=== PATIENT | female | born 1950 | race Caucasian/White ===

== ENCOUNTER 2020-07-10 16:46 | Inpatient (IN) ==
[2020-07-10] MEDS ORDERED: fentaNYL citrate 100 MCG/2 ML VIAL ONE ×2 (17:03→17:14)
[2020-07-10] MEDS ORDERED: fentaNYL citrate 100 MCG/2 ML VIAL IV STA (17:03)
[2020-07-10] MEDS ORDERED: ASPIRIN CHEW 324 MG PO STA (17:03)
[2020-07-10] MEDS ORDERED: SODIUM CHLORIDE 0.9% 1000ML 1,000 ML IV ONE (17:04)
[2020-07-10] MEDS ORDERED: ASPIRIN CHEW 324 MG ONE (17:04)
[2020-07-10] MEDS ORDERED: diphenhydrAMINE 50 MG/ML VIAL IV STA (17:10)
[2020-07-10] MEDS ORDERED: methylPREDNISolone 125 MG/2 ML VIAL IV STA (17:10)
--- NOTE | 2020-07-10 17:10 | Emergency Department Note ---
History of Present Illness General Chief Complaint: Chest Pain Stated Complaint: CHEST PAINS, SWEATING Time Seen by Provider: 07/10/20 17:01 History of Present Illness Provider Complaint: chest pain Onset (ago): hour(s) 1 Duration: constant Onset: during exertion Pain Location: substernal Pain Radiation: LUE Severity: moderate Maximum Pain Intensity: 8 Current Pain Intensity: 8 Quality: + heaviness Relieved By: + nothing Exacerbated By: + nothing Context: no recent illness, no recent surgery, no recent immobilization, no recent travel, no trauma/injury, no new medications and no history of DVT/PE Associated symptoms: + diaphoresis and + dyspnea; no nausea, no vomiting, no sense of impending doom, no syncope, no palpitations, no cough and no leg swelling Treatments prior to arrival: none Home Medications Medication Instructions Recorded Confirmed Type aspirin [Aspirin Low Dose] 81 mg PO DAILY 11/19/19 07/10/20 History atorvastatin 40 mg PO DAILY 11/19/19 07/10/20 History venlafaxine 150 mg PO DAILY 11/19/19 07/10/20 History metformin 850 mg PO BID 07/10/20 07/10/20 History Allergies Allergy/AdvReac Type Severity Reaction Status Date / Time Sulfa (Sulfonamide Allergy Intermediate RASH Verified 07/10/20 17:05 Antibiotics) Past Med/Surg History Medical History (Updated 07/10/20 @ 22:20 by Johnnie De La Cruz) Diabetes mellitus Hyperlipidemia No pertinent family history Surgical History No pertinent past surgical history Family History (Updated 07/10/20 @ 19:53 by Flaquita Candelaria DO) Grandmother Stroke Social History Smoking Status: Never smoker Hx Alcohol Use: Yes Alcohol type: wine Hx Substance Use: No Preferred Language: Yakut Communication Ability: Effective Aluminum Polisher Required: No Beliefs That Will Affect Care: None Current Living Situation: Alone Other Information That Helps Us Care for You: No Feels Safe at Home: Yes Safety Concerns: Feels Safe At This Time Assistive Devices: Glasses, Hearing Aid - Bilateral and Hearing Aid - Left Review of Systems A total of 10 systems reviewed and were otherwise negative Physical Exam Vital Signs Vital Signs - 24 hr 07/10/20 16:53 07/10/20 17:14 07/10/20 17:23 Temperature 36.4 C L Temperature Source Oral Pulse Rate 87 78 Pulse Rate [Apical] 78 Respiratory Rate 25 H 18 20 Respiratory Effort / Characteristics Non-Labored Respiratory Depth Shallow Normal Respiratory Pattern Tachypnea Blood Pressure [Right Arm] 165/94 H Blood Pressure Mean [Right Arm] 117 Pulse Oximetry 97 97 94 Oxygen Delivery Method Room Air Room Air Room Air Sepsis Recent Fever Within 48 Hours No Sepsis New/Unexplained Change in Mental Status No Sepsis Action Taken by Nursing No Action Required Course Course 1701: The patient was evaluated in room C8. A complete history and physical exam was performed. Cardiac monitoring: An order was placed for continuous cardiac monitoring. The monitor shows a rate of 80 with sinus rhythm heart alert paged Administered Medications Acetaminophen (Acetaminophen 325 Mg Tab) 650 mg PO Q4H PRN PRN Reason: MILD Pain (Scale 1,2,3) Stop: 08/09/20 18:33 Last Admin: 07/10/20 20:07 Dose: 650 mg Documented by: [id number] Sodium Chloride (Nss 1000ml) 1,000 mls @ 100 mls/hr IV .Q10H [facility] Stop: 07/11/20 02:14 Last Infusion: 07/10/20 21:45 Dose: 0 mls/hr Documented by: [id number] Admin: 07/10/20 19:00 Dose: 100 mls/hr Documented by: [id number] Insulin Aspart (Insulin Aspart 100 Units/Ml 3 Ml Pen) 0 units SC ACHS ASHLEY Stop: 08/09/20 20:59 Last Admin: 07/10/20 20:44 Dose: 1 units Documented by: [id number] Cosigned by: [id number] Metoprolol Tartrate (Metoprolol Tartrate 25 Mg Tab) 25 mg PO BID [facility] Stop: 08/09/20 20:59 Last Admin: 07/10/20 20:43 Dose: 25 mg Documented by: [id number] Discontinued Medications Aspirin (Aspirin Chew 324 Mg) 324 mg PO NOW [facility] Stop: 07/10/20 17:04 Last Admin: 07/10/20 17:05 Dose: 324 mg Documented by: [id number] Aspirin (Aspirin Chew 324 Mg) Confirm Administered Dose 324 mg .ROUTE .STK-MED ONE Stop: 07/10/20 17:05 Last Admin: 07/10/20 19:20 Dose: Not Given Documented by: [id number] Atropine Sulfate (Atropine Sulfate 0.1 Mg/Ml 10ml Syr) Confirm Administered Dose 1 mg IV .[facility] ONE Stop: 07/10/20 17:31 Last Admin: 07/10/20 18:18 Dose: Not Given Documented by: [id number] Diphenhydramine HCl (Diphenhydramine 50 Mg/Ml Vial) 25 mg IV NOW STA Stop: 07/10/20 17:11 Last Admin: 07/10/20 17:15 Dose: 25 mg Documented by: [id number] Diphenhydramine HCl (Diphenhydramine 50 Mg/Ml Vial) Confirm Administered Dose 50 mg .ROUTE .STMedClimate-MED ONE Stop: 07/10/20 17:12 Last Admin: 07/10/20 19:20 Dose: Not Given Documented by: [id number] Fentanyl Citrate (Fentanyl Citrate 100 Mcg/2 Ml Vial) 50 mcg IV NOW STA Stop: 07/10/20 17:04 Last Admin: 07/10/20 17:05 Dose: 50 mcg Documented by: [id number] Fentanyl Citrate (Fentanyl Citrate 100 Mcg/2 Ml Vial) Confirm Administered Dose 100 mcg .ROUTE .STMedClimate-MED ONE Stop: 07/10/20 17:15 Last Admin: 07/10/20 19:19 Dose: Not Given Documented by: [id number] Fentanyl Citrate (Fentanyl Citrate 100 Mcg/2 Ml Vial) Confirm Administered Dose 100 mcg .ROUTE .STMedClimate-MED ONE Stop: 07/10/20 17:04 Last Admin: 07/10/20 18:17 Dose: 100 mcg Documented by: [id number] Heparin Sodium (Porcine) (Heparin (Porcine) 1000 Unit/Ml 10 Ml (Ship Purser Use Only)) Confirm Administered Dose 10,000 units .ROUTE .STMedClimate-MED ONE Stop: 07/10/20 17:14 Last Admin: 07/10/20 18:19 Dose: 6,000 units Documented by: [id number] Heparin Sodium (Porcine) (Heparin (Porcine) 1000 Unit/Ml 10 Ml (Ship Purser Use Only)) Confirm Administered Dose 10,000 units .ROUTE .STMedClimate-MED ONE Stop: 07/10/20 18:01 Last Admin: 07/10/20 18:18 Dose: 10,000 units Documented by: [id number] Heparin Sodium/Sodium Chloride (Heparin In Nss Infusion 1000 Unit/500 Ml (2 U/Ml) Bag) Confirm Administered Dose 3,000 units IV .STK-MED ONE Stop: 07/10/20 17:15 Last Admin: 07/10/20 18:17 Dose: 3,000 units Documented by: [id number] Sodium Chloride (Nss 1000ml) 1,000 mls @ 999 mls/hr IV .Q1H1M ONE Stop: 07/10/20 18:04 Last Infusion: 07/10/20 18:38 Dose: 0 mls/hr Documented by: [id number] Admin: 07/10/20 17:17 Dose: 999 mls/hr Documented by: [id number] Methylprednisolone (Methylprednisolone 125 Mg/2 Ml Vial) 125 mg IV NOW STA Stop: 07/10/20 17:11 Last Admin: 07/10/20 17:15 Dose: 125 mg Documented by: [id number] Methylprednisolone (Methylprednisolone 125 Mg/2 Ml Vial) Confirm Administered Dose 125 mg .ROUTE .STK-MED ONE Stop: 07/10/20 17:12 Last Admin: 07/10/20 19:19 Dose: Not Given Documented by: [id number] Midazolam HCl (Midazolam Hcl 1 Mg/Ml 2ml Vial) Confirm Administered Dose 2 mg .ROUTE .STK-MED ONE Stop: 07/10/20 17:14 Last Admin: 07/10/20 18:17 Dose: 2 mg Documented by: [id number] Midazolam HCl (Midazolam Hcl 1 Mg/Ml 2ml Vial) Confirm Administered Dose 2 mg .ROUTE .STK-MED ONE Stop: 07/10/20 18:06 Last Increment: 07/10/20 18:18 Dose: 1 mg Documented by: [id number] Nicardipine HCl (Nicardipine Hcl Inj 2.5 Mg/Ml 10 Ml Amp) Confirm Administered Dose 25 mg .ROUTE .STK-MED ONE Stop: 07/10/20 17:14 Last Admin: 07/10/20 18:18 Dose: 25 mg Documented by: [id number] Nitroglycerin/Dextrose (Nitroglycerin/D5w 100mcg/Ml 20ml Syr) Confirm Administered Dose 2,000 mcg .ROUTE .STK-MED ONE Stop: 07/10/20 17:15 Last Admin: 07/10/20 18:18 Dose: 2,000 mcg Documented by: [id number] Ondansetron HCl (Ondansetron Inj 2 Mg/Ml 2 Ml Vial) Confirm Administered Dose 4 mg .ROUTE .STK-MED ONE Stop: 07/10/20 17:31 Last Admin: 07/10/20 18:18 Dose: 4 mg Documented by: [id number] Potassium Chloride (Potassium Chloride Crtab 20 Meq Tabcr) 20 meq PO NOW STA Stop: 07/10/20 20:07 Last Admin: 07/10/20 20:47 Dose: 20 meq Documented by: [id number] Ticagrelor (Ticagrelor 90 Mg Tab) Confirm Administered Dose 180 mg PO .STK-MED ONE Stop: 07/10/20 18:24 Last Admin: 07/10/20 18:30 Dose: 180 mg Documented by: [id number] Medical Decision Making Laboratory Data Result diagrams: 07/10/20 17:13 07/10/20 17:13 Labs: Lab Results 07/10/20 07/10/20 07/10/20 Range/Units 17:03 17:13 17:13 WBC 14.56 H (4.8-10.8) K/uL RBC 4.60 (4.2-5.4) M/uL Hgb 14.3 (12.0-16.0) g/dL POC Hgb (12.0-16.0) g/dl Hct 41.8 (37-47) % POC Hct (37-47) % MCV 90.9 (80-100) fL MCH 31.1 (25-34) pg MCHC 34.2 (32-36) g/dL RDW Std Deviation 44.0 (36.4-46.3) fL RDW Coeff of Mehran 13.4 (11.5-14.5) % Plt Count 491 H (130-400) K/uL MPV 9.5 (7.4-10.4) fL Immature Gran % (Auto) 0.7 % Neut % (Auto) 67.2 % Lymph % (Auto) 22.3 % [place] % (Auto) 7.9 % Eos % (Auto) 1.4 % Baso % (Auto) 0.5 % Neut # (Auto) 9.77 H (1.4-6.5) K/uL Lymph # (Auto) 3.25 (1.2-3.4) K/uL [place] # (Auto) 1.15 H (0.11-0.59) K/uL Eos # (Auto) 0.21 (0-0.5) K/uL Baso # (Auto) 0.08 (0-0.2) K/uL Immature Gran # (Auto) 0.10 H (0.00-0.02) K/uL PT 9.8 (9.0-12.0) Seconds INR 1.0 (0.9-1.1) APTT 21.0 (21.0-31.0) Seconds PTT Ratio 0.8 Activ Coag Time Kaolin (94-140) SECONDS POC Sodium (135-144) mmol/L Sodium 141 (136-145) mmol/L POC Potassium (3.3-5.0) mmol/L Potassium 3.6 (3.5-5.1) mmol/L POC Chloride (101-112) mmol/L Chloride 108 H (98-107) mmol/L Carbon Dioxide 23 (21-32) mmol/L POC Total CO2 (24-31) mmol/L Anion Gap 10.0 (3-11) POC Anion Gap (16-25) mmol/L POC BUN (7-18) mg/dl BUN 20 H (7-18) mg/dl Creatinine 1.24 H (0.6-1.2) mg/dl POC Creatinine (0.6-1.3) mg/dl Est Cr Clr Drug Dosing 44.4 ml/min Est GFR ( Amer) 50.6 Est GFR (Non-Af Amer) 43.7 BUN/Creatinine Ratio 16.5 (10-20) Glucose 138 H (70-99) mg/dl POC Glucose (other) (70-99) mg/dl Calcium 10.4 H (8.5-10.1) mg/dl POC Ioniz Calcium Willie (1.12-1.32) mmol/l Magnesium 2.4 (1.8-2.4) mg/dl Total Bilirubin 0.5 (0.2-1) mg/dl AST 14 L (15-37) U/L ALT 32 (12-78) U/L Alkaline Phosphatase 117 (45-117) U/L Total Creatine Kinase 105 (26-192) U/L CK-MB (CK-2) 1.3 (0.5-3.6) ng/ml CK/CKMB % Calc 1.2 (0-3.0) Troponin I < 0.015 (0-0.045) ng/ml Total Protein 8.5 H (6.4-8.2) gm/dl Albumin 4.4 (3.4-5.0) gm/dl Globulin 4.1 H (2.5-4.0) gm/dl Albumin/Globulin Ratio 1.1 (0.9-2) Lipase 97 (73-393) U/L TSH 5.220 H (0.300-4.500) uIu/ml Free T4 0.86 (0.8-1.6) ng/dl Urine Color Urine Appearance Urine pH Ur Specific [place] Urine Protein Urine Glucose (UA) Urine Ketones Urine Blood Urine Nitrite Urine Bilirubin Urine Urobilinogen Ur Leukocyte Esterase Urine WBC (Auto) Urine RBC (Auto) U Hyaline Cast (Auto) U Epithel Cells (Auto) Urine Bacteria (Auto) Ur Renal Epithelial Cell Urine Crystals Calcium Oxalate Crystal Uric Acid Crystals Triple Phos Crystals Other Crystals Amorphous Sediment Granular Casts Waxy Casts RBC Casts WBC Casts Other Casts Urine Mucus Urine Other Urine Trichomonas Urine Yeast Urine Sperm Ur Oval Fat Bodies COVID-19 Eval Order SARS-CoV-2 (PCR) (Negative) Influenza Type A (PCR) (Neg) Influenza Type B (PCR) (Neg) RSV (RT-PCR) (Neg) 07/10/20 07/10/20 07/10/20 Range/Units 17:13 17:13 17:18 WBC (4.8-10.8) K/uL RBC (4.2-5.4) M/uL Hgb (12.0-16.0) g/dL POC Hgb 15.3 (12.0-16.0) g/dl Hct (37-47) % POC Hct 45 (37-47) % MCV (80-100) fL MCH (25-34) pg MCHC (32-36) g/dL RDW Std Deviation (36.4-46.3) fL RDW Coeff of Mehran (11.5-14.5) % Plt Count (130-400) K/uL MPV (7.4-10.4) fL Immature Gran % (Auto) % Neut % (Auto) % Lymph % (Auto) % [place] % (Auto) % Eos % (Auto) % Baso % (Auto) % Neut # (Auto) (1.4-6.5) K/uL Lymph # (Auto) (1.2-3.4) K/uL [place] # (Auto) (0.11-0.59) K/uL Eos # (Auto) (0-0.5) K/uL Baso # (Auto) (0-0.2) K/uL Immature Gran # (Auto) (0.00-0.02) K/uL PT (9.0-12.0) Seconds INR (0.9-1.1) APTT (21.0-31.0) Seconds PTT Ratio Activ Coag Time Kaolin (94-140) SECONDS POC Sodium 143 (135-144) mmol/L Sodium (136-145) mmol/L POC Potassium 3.7 (3.3-5.0) mmol/L Potassium (3.5-5.1) mmol/L POC Chloride 106 (101-112) mmol/L Chloride (98-107) mmol/L Carbon Dioxide (21-32) mmol/L POC Total CO2 25 (24-31) mmol/L Anion Gap (3-11) POC Anion Gap 17.0 (16-25) mmol/L POC BUN 21 H (7-18) mg/dl BUN (7-18) mg/dl Creatinine (0.6-1.2) mg/dl POC Creatinine 1.2 (0.6-1.3) mg/dl Est Cr Clr Drug Dosing ml/min Est GFR ( Amer) Est GFR (Non-Af Amer) BUN/Creatinine Ratio (10-20) Glucose (70-99) mg/dl POC Glucose (other) 140 H (70-99) mg/dl Calcium (8.5-10.1) mg/dl POC Ioniz Calcium Willie 1.27 (1.12-1.32) mmol/l Magnesium (1.8-2.4) mg/dl Total Bilirubin (0.2-1) mg/dl AST (15-37) U/L ALT (12-78) U/L Alkaline Phosphatase (45-117) U/L Total Creatine Kinase (26-192) U/L CK-MB (CK-2) (0.5-3.6) ng/ml CK/CKMB % Calc (0-3.0) Troponin I (0-0.045) ng/ml Total Protein (6.4-8.2) gm/dl Albumin (3.4-5.0) gm/dl Globulin (2.5-4.0) gm/dl Albumin/Globulin Ratio (0.9-2) Lipase (73-393) U/L TSH (0.300-4.500) uIu/ml Free T4 (0.8-1.6) ng/dl Urine Color Urine Appearance Urine pH Ur Specific [place] Urine Protein Urine Glucose (UA) Urine Ketones Urine Blood Urine Nitrite Urine Bilirubin Urine Urobilinogen Ur Leukocyte Esterase Urine WBC (Auto) Urine RBC (Auto) U Hyaline Cast (Auto) U Epithel Cells (Auto) Urine Bacteria (Auto) Ur Renal Epithelial Cell Urine Crystals Calcium Oxalate Crystal Uric Acid Crystals Triple Phos Crystals Other Crystals Amorphous Sediment Granular Casts Waxy Casts RBC Casts WBC Casts Other Casts Urine Mucus Urine Other Urine Trichomonas Urine Yeast Urine Sperm Ur Oval Fat Bodies COVID-19 Eval Order [facility] at [facility] SARS-CoV-2 (PCR) NEGATIVE (Negative) Influenza Type A (PCR) Negative (Neg) Influenza Type B (PCR) Negative (Neg) RSV (RT-PCR) Negative (Neg) 07/10/20 07/10/20 07/10/20 Range/Units 17:56 18:18 18:34 WBC (4.8-10.8) K/uL RBC (4.2-5.4) M/uL Hgb (12.0-16.0) g/dL POC Hgb (12.0-16.0) g/dl Hct (37-47) % POC Hct (37-47) % MCV (80-100) fL MCH (25-34) pg MCHC (32-36) g/dL RDW Std Deviation (36.4-46.3) fL RDW Coeff of Mehran (11.5-14.5) % Plt Count (130-400) K/uL MPV (7.4-10.4) fL Immature Gran % (Auto) % Neut % (Auto) % Lymph % (Auto) % [place] % (Auto) % Eos % (Auto) % Baso % (Auto) % Neut # (Auto) (1.4-6.5) K/uL Lymph # (Auto) (1.2-3.4) K/uL [place] # (Auto) (0.11-0.59) K/uL Eos # (Auto) (0-0.5) K/uL Baso # (Auto) (0-0.2) K/uL Immature Gran # (Auto) (0.00-0.02) K/uL PT (9.0-12.0) Seconds INR (0.9-1.1) APTT (21.0-31.0) Seconds PTT Ratio Activ Coag Time Kaolin 241 H 296 H (94-140) SECONDS POC Sodium (135-144) mmol/L Sodium (136-145) mmol/L POC Potassium (3.3-5.0) mmol/L Potassium (3.5-5.1) mmol/L POC Chloride (101-112) mmol/L Chloride (98-107) mmol/L Carbon Dioxide (21-32) mmol/L POC Total CO2 (24-31) mmol/L Anion Gap (3-11) POC Anion Gap (16-25) mmol/L POC BUN (7-18) mg/dl BUN (7-18) mg/dl Creatinine (0.6-1.2) mg/dl POC Creatinine (0.6-1.3) mg/dl Est Cr Clr Drug Dosing ml/min Est GFR ( Amer) Est GFR (Non-Af Amer) BUN/Creatinine Ratio (10-20) Glucose (70-99) mg/dl POC Glucose (other) (70-99) mg/dl Calcium (8.5-10.1) mg/dl POC Ioniz Calcium Willie (1.12-1.32) mmol/l Magnesium (1.8-2.4) mg/dl Total Bilirubin (0.2-1) mg/dl AST (15-37) U/L ALT (12-78) U/L Alkaline Phosphatase (45-117) U/L Total Creatine Kinase (26-192) U/L CK-MB (CK-2) (0.5-3.6) ng/ml CK/CKMB % Calc (0-3.0) Troponin I (0-0.045) ng/ml Total Protein (6.4-8.2) gm/dl Albumin (3.4-5.0) gm/dl Globulin (2.5-4.0) gm/dl Albumin/Globulin Ratio (0.9-2) Lipase (73-393) U/L TSH (0.300-4.500) uIu/ml Free T4 (0.8-1.6) ng/dl Urine Color Cancelled Urine Appearance Cancelled Urine pH Cancelled Ur Specific [place] Cancelled Urine Protein Cancelled Urine Glucose (UA) Cancelled Urine Ketones Cancelled Urine Blood Cancelled Urine Nitrite Cancelled Urine Bilirubin Cancelled Urine Urobilinogen Cancelled Ur Leukocyte Esterase Cancelled Urine WBC (Auto) Cancelled Urine RBC (Auto) Cancelled U Hyaline Cast (Auto) Cancelled U Epithel Cells (Auto) Cancelled Urine Bacteria (Auto) Cancelled Ur Renal Epithelial Cell Cancelled Urine Crystals Cancelled Calcium Oxalate Crystal Cancelled Uric Acid Crystals Cancelled Triple Phos Crystals Cancelled Other Crystals Cancelled Amorphous Sediment Cancelled Granular Casts Cancelled Waxy Casts Cancelled RBC Casts Cancelled WBC Casts Cancelled Other Casts Cancelled Urine Mucus Cancelled Urine Other Cancelled Urine Trichomonas Cancelled Urine Yeast Cancelled Urine Sperm Cancelled Ur Oval Fat Bodies Cancelled COVID-19 Eval Order SARS-CoV-2 (PCR) (Negative) Influenza Type A (PCR) (Neg) Influenza Type B (PCR) (Neg) RSV (RT-PCR) (Neg) ECG Data Indication: chest pain Rate (beats per minute): 82 Rhythm: normal sinus Findings: + ST depression (I aVL V1 V2 V3), + ST elevation (II III aVF V6) and + acute ischemic change; no prolonged QT MDM Narrative The patient was evaluated in room C8. A complete history and physical exam was performed. Cardiac monitoring: An order was placed for continuous cardiac monitoring. The monitor shows a rate of 80 with sinus rhythm heart alert paged Impression & Plan STEMI (ST elevation myocardial infarction) Discharge Plan Visit Data Chief Complaint: Chest Pain Stated Complaint: CHEST PAINS, SWEATING ED Provider: Johnnie De La Cruz Discharge Problem: STEMI (ST elevation myocardial infarction) Patient Disposition: Admitted As Inpatient Discharge Instructions Interventions: ED Discharge Assessment Last Done: 07/10/20 17:23 Discharge Problem: STEMI (ST elevation myocardial infarction) Qualifiers: Involved coronary artery: unspecified coronary artery Qualified Code(s): I21.3 - ST elevation (STEMI) myocardial infarction of unspecified site
[2020-07-10] MEDS ORDERED: methylPREDNISolone 125 MG/2 ML VIAL ONE (17:11)
[2020-07-10] MEDS ORDERED: diphenhydrAMINE 50 MG/ML VIAL ONE (17:11)
[2020-07-10] MEDS ORDERED: MIDAZOLAM HCL 1 MG/ML 2ML VIAL ONE ×2 (17:13→18:05)
[2020-07-10] MEDS ORDERED: niCARdipine HCL INJ 2.5 MG/ML 10 ML AMP ONE (17:13)
[2020-07-10] MEDS ORDERED: HEPARIN (PORCINE) 1000 UNIT/ML 10 ML (CATH LAB USE ONLY) ONE ×2 (17:13→18:00)
[2020-07-10] MEDS ORDERED: NITROGLYCERIN/D5W 100MCG/ML 20ML SYR ONE (17:14)
[2020-07-10 17:24] LABS: Basophils # (auto) 0.08 K/uL (0-0.2); Basophils % (auto) 0.5 %; Eosinophils # (auto) 0.21 K/uL (0-0.5); Eosinophils % (auto) 1.4 %; Hematocrit (blood only) 41.8 % (37-47); Hemoglobin 14.3 g/dL (12.0-16.0); Immature Granulocytes % (auto) 0.7 %; Lymphocytes # (auto) 3.25 K/uL (1.2-3.4); Lymphocytes % (auto) 22.3 %; Mean Corpuscular Hemoglobin 31.1 pg (25-34); Mean Corpuscular Hgb Conc 34.2 g/dL (32-36); Mean Corpuscular Volume 90.9 fL (80-100); Mean Platelet Volume 9.5 fL (7.4-10.4); Monocytes # (auto) 1.15 K/uL (0.11-0.59); Monocytes % (auto) 7.9 %; Neutrophils # (auto) 9.77 K/uL (1.4-6.5); Neutrophils % (auto) 67.2 %; Platelet Count 491 K/uL (130-400); RDW Coefficient of Variation 13.4 % (11.5-14.5); White Blood Count 14.56 K/uL (4.8-10.8)
--- NOTE | 2020-07-10 17:25 | Pre Anesthesia Assessment ---
Date of Service July 10, 2020 Pre Sedation Assessment Vital Signs Temp Pulse Pulse Resp BP Pulse Ox 07/10/20 17:14 78 18 165/94 H 97 07/10/20 16:53 97.5 F L 87 25 H 97 Cardiovascular RRR, no murmur, no edema Respiratory normal respiratory effort, lungs clear to auscultation Pre-Sedation Airway Assessment Smoking Status: Never smoker Hx Sleep Apnea: No Hx Difficult Intubation: No Short, Thick Neck: No Thyromental Distance: > or= 3.5 Finger Breadths Oral Cavity: + WNL Mallampati Class: III ASA: ASA3 Procedure Planning Contraindications for Sedation: none Current Medications Reviewed: Yes Notes The planned sedation has been discussed with the patient. Informed Consent was obtained. I have identified the patient, determined the appropriateness of sedation and have assessed the patient immediately prior to the procedure. All medicine(s) and interventions are by my order.
[2020-07-10] MEDS ORDERED: ATROPINE SULFATE 0.1 MG/ML 10ML SYR IV ONE (17:30)
[2020-07-10] MEDS ORDERED: ONDANSETRON INJ 2 MG/ML 2 ML VIAL ONE (17:30)
--- NOTE | 2020-07-10 17:30 | Cardiology Consultation ---
Date of Consultation July 10, 2020 Assessment & Plan (1) STEMI (ST elevation myocardial infarction): Presentation consistent with inferior STEMI and recommend proceeding with emergent cardiac catheterization and likely primary PCI. She was pretreated for her IV contrast allergy. Discussed risks, benefits, alternatives of procedure with patient and they are willing to proceed. Further recommendations pending findings of coronary angiography. History of Present Illness History of Present Illness 70-year-old female here with acute chest pain and ECG concerning for acute ID. Patient seen emergently in the ED after heart alert activated upon arrival. No prior cardiac history. Cardiac risk factors include type 2 diabetes on oral therapy and dyslipidemia. She has a known IV contrast allergy. Chest pain began approximately 1 hour prior to arrival, around 4 PM. States she just got home from doing heavy yard work, using a chainsaw at her cheondoism when became diaphoretic then developed chest pain radiating to her back. Denies similar symptoms in the past but does state that over the last month or so she has had increased dyspnea on exertion. Given nitroglycerin, fentanyl, solumedrol and benadryl in the ED. Severe chest pain persists at time of interview. Hemodynamically stable. EKG showed sinus rhythm with inferior ST elevations. Social history: Denies tobacco use. 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 Family history: No history of premature CAD Allergies Allergy/AdvReac Type Severity Reaction Status Date / Time Sulfa (Sulfonamide Allergy Intermediate RASH Verified 07/10/20 17:05 Antibiotics) Home Medications Medication Instructions Recorded Confirmed Type aspirin [Aspirin Low Dose] 81 mg PO DAILY 11/19/19 07/10/20 History atorvastatin 40 mg PO DAILY 11/19/19 07/10/20 History venlafaxine 150 mg PO DAILY 11/19/19 07/10/20 History metformin 850 mg PO BID 07/10/20 07/10/20 History Patient History Medical History (Updated 07/10/20 @ 17:28 by Maximiliano Sierra MD) Diabetes mellitus No pertinent family history Surgical History (Updated 07/10/20 @ 17:10 by Johnnie De La Cruz) No pertinent past surgical history Social History Smoking Status: Never smoker Preferred Language: Czech Feels Safe at Home: Yes Review of Systems Review of Systems: Not obtained in the setting of emergent situation. Physical Exam Physical Exam: General: Uncomfortable, diaphoretic Lungs: Clear to auscultation bilaterally Cardiac: Regular rate and rhythm Abdomen: Soft, nontender Extremities: Warm, well perfused, no edema. 2+ radial pulses Skin: No rashes or lesions. Neuro: Nonfocal Psych: Alert orient x3, normal affect and mood Results & Data ([facility]) Vital Signs (Past 12 Hours) Vital Signs Temp Pulse Pulse Resp BP Pulse Ox 07/10/20 17:14 78 18 165/94 H 97 07/10/20 16:53 97.5 F L 87 25 H 97 PG Care Time/CCT Total # of Minutes Spent Total Time Spent with Patient: Total time spent is greater than 50% in coordination of care (as documented) at patient's floor/unit and/or counseling patient: Coding Level of Care Code 76652 Initial Inpt Care Lvl 3 Diagnoses STEMI (ST elevation myocardial infarction) I21.3
[2020-07-10 17:32] LABS: iSTAT Creatinine 1.2 mg/dl (0.6-1.3); iSTAT Hemoglobin 15.3 g/dl (12.0-16.0); iSTAT Ionized Calcium 1.27 mmol/l (1.12-1.32); iSTAT Potassium 3.7 mmol/L (3.3-5.0)
[2020-07-10 17:40] LABS: Partial Thromboplastin Ratio 0.8; Prothrombin Time 9.8 Seconds (9.0-12.0)
[2020-07-10 17:49] LABS: Alanine Aminotransferase 32 U/L (12-78); Albumin Level 4.4 gm/dl (3.4-5.0); Aspartate Aminotransferase 14 U/L (15-37); BUN Creatinine Ratio 16.5 (10-20); Blood Urea Nitrogen 20 mg/dl (7-18); Calcium 10.4 mg/dl (8.5-10.1); Carbon Dioxide 23 mmol/L (21-32); Chloride 108 mmol/L (98-107); Creatinine Clr Calc Pharmacy 44.4 ml/min; Est GFR (African American) 50.6; Est GFR (Non-African American) 43.7; Glucose 138 mg/dl (70-99); Lipase 97 U/L (73-393); Magnesium 2.4 mg/dl (1.8-2.4); Potassium 3.6 mmol/L (3.5-5.1); Sodium 141 mmol/L (136-145)
[2020-07-10 18:00] LABS: Albumin Globulin Ratio 1.1 (0.9-2); Alkaline Phosphatase 117 U/L (45-117); Bilirubin,Total 0.5 mg/dl (0.2-1); Creatine Kinase 105 U/L (26-192); Creatine Kinase MB 1.3 ng/ml (0.5-3.6); Globulin 4.1 gm/dl (2.5-4.0); Total Protein 8.5 gm/dl (6.4-8.2); Troponin I < 0.015 ng/ml (0-0.045)
[2020-07-10 18:12] LABS: T4 Free Thyroxine 0.86 ng/dl (0.8-1.6)
[2020-07-10 18:13] LABS: Influenza A virus by PCR Negative (Neg); Influenza B virus by PCR Negative (Neg); RSV by PCR Negative (Neg); SARS CoV2 RNA(COVID-19) InHosp NEGATIVE (Negative)
[2020-07-10] MEDS ORDERED: TICAGRELOR 90 MG TAB PO ONE (18:23)
--- NOTE | 2020-07-10 18:33 | Post Anesthesia Assessment ---
Date of Service July 10, 2020 Post Sedation Assessment Vital Signs Temp Pulse Pulse Resp BP Pulse Ox 07/10/20 17:23 78 20 94 07/10/20 17:14 78 18 165/94 H 97 07/10/20 16:53 97.5 F L 87 25 H 97 Recovery Score Activity: Moves 4 extremities Respiration: Deep Breath/Cough Circulation: +/-20% PreAnes Value Consciousness: Fully Awake Oxygen Saturation: O2 needed for >90% Discharge Sedation Level of Care: Fast Track Phase II Post Sedation Plan On clinical assessment, the patient appears to have tolerated the sedation without complications. Patient is recovering as anticipated. Patient will continue to be monitored by nursing and may be discharged when sedation discharge criteria are met per below protocol. Upon Completions of procedure up to 15 minutes continue every 5 minute vital signs and the P.A.R. score; then discharge to a Phase I or Fast Track to Phase II per the following guidelines: * Discharge Patient to appropriate Phase II area if PAR is 8 or greater or return to pre- procedure baseline. The post - procedure orders will be as directed. * If PAR score is less than 8 or not return to pre-procedure baseline then patient will follow Phase I monitoring till PAR is reached for Phase II. The Phase I may be done in procedure room or may call to secure a Phase I area. * If naloxone or flumazenil are used for reversal, hold in Phase I for continued monitoring from when last reversal dose was given for a minimum of 60 minutes or longer pending the nurse and/or physician discretion of patient condition before discharge to Phase II. Please call the Sedation Physician to re-evaluate and complete post-note for discharge to Phase II area. Do NOT discharge from procedure sedation or Phase 1 until post- sedation evaluation note is complete by procedure /sedation MD Sedation Discharge Instructions to be given to the patient at discharge to home.
[2020-07-10] MEDS ORDERED: ACETAMINOPHEN 325 MG TAB PO PRN ×2 (18:34→19:35)
[2020-07-10] MEDS ORDERED: NITROGLYCERIN SL 0.4 MG/TAB TAB SL PRN (18:34)
[2020-07-10] MEDS ORDERED: ONDANSETRON INJ 2 MG/ML 2 ML VIAL IV PRN ×2 (18:34→19:35)
[2020-07-10] MEDS ORDERED: MoRPHine SULFATE 2 MG/ML CARP IV PRN (18:34)
[2020-07-10] MEDS ORDERED: ICU PROTOCOL FOR HYPERGLYCEMIA PRN (18:34)
[2020-07-10] MEDS ORDERED: SODIUM CHLORIDE 0.9% 1000ML 1,000 ML IV SCH (18:45)
[2020-07-10] MEDS ORDERED: DEXTROSE 50% 50 ML SYRINGE IV PRN (18:46)
[2020-07-10] MEDS ORDERED: GLUCOSE 10 TABS/TUBE PO PRN (18:46)
[2020-07-10] MEDS ORDERED: GLUCOSE 40% GEL 15 GM TUBE PO PRN (18:46)
[2020-07-10] MEDS ORDERED: GLUCAGON FOR INJ 1 MG VIAL SQ PRN (18:46)
[2020-07-10] MEDS ORDERED: CARBOHYDRATES FOR HYPOGLYCEMIA PO PRN (18:46)
--- NOTE | 2020-07-10 18:47 | Cardiac Catheterization ---
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 Cardiac Status Clinical evaluation leading to the procedure CAD Presenation: STEMI Anginal Classification: CCS IV Heart Failure: No Cardiogenic Shock within 24 Hours: No Cardiac Arrest within 24 Hours: No Imaging Studies Past 6 Months: No Stress Studies Past 6 Months: No Diagnostic Physicians Name: Edvin Sierra MD Status: Elective Closure Device Percutaneous Entry Location: Radial Closure Device: Radial Band Recommendations: PCI without planned CABG PCI Indication: Immediate PCI for STEMI Lesion Segment Name: Distal circumflex Culprit Artery: Yes Stenosis Prior to Rx (%): 100 Chronic Total Occlusion: No IVUS: No FFR: No Pre-Procedure BLAKE Flow: 0 Previously Treated Lesion: No Lesion Complexity: Non-High/Non-C Lesion Length (mm): 15 Thrombus Present: Yes Bifurcation Lesion: No Guidewire Across Lesion: Stenosis Post-Procedure (%): 0 Post-Procedure BLAKE Flow: 3 Devices(s) Deployed: Yes Yes Lesion #2 Segment Name: Mid RCA Culprit Artery: No Stenosis Prior to Rx (%): 95+ Chronic Total Occlusion: No IVUS: No FFR: No Pre-Procedure BLAKE Flow: 3 Previously Treated Lesion: No Lesion Complexity: Non-High/Non-C Lesion Length (mm): 15 Thrombus Present: Yes Bifurcation Lesion: Yes Guidewire Across Lesion: Yes Stenosis Post-Procedure (%): 0 Post-Procedure BLAKE Flow: 3 Devices(s) Deployed: Yes Intraprocedure Events Significant Disection: No Perforation: No Cardiac Cath Procedure Full Procedure Date July 10, 2020 Pre-Procedure Diagnosis Pre-Procedure Diagnosis: STEMI AUC Score AUC Score: 9 Post-Procedure Diagnosis Post-Procedure Diagnosis: Severe CAD, Successful PCI, Normal LV Systolic F unction and Normal Intracardiac Pressures Procedure(s) Performed Procedure(s) Performed: Coronary Angiography, Left Heart Cath and Drug Eluting Stent Production Finisher Edvin Sierra MD Harness Preparer(s) Bermudez Estimated Blood Loss Estimated Blood Loss: 20 Medication(s) Medication(s): Fentanyl, Heparin, Lidocaine 1%, Nicardipine, Nitroglycerin and Versed Medication(s): Ticagrelor Summary of Findings Indication: STEMI/Heart Alert Access: 6Fr right radial artery Catheters: Midnight, EBU 3.5 guide, JR4 guide Findings: LM -Short, normal caliber, no significant disease LAD - Medium caliber, 30% proximal to mid disease, distal vessel without significant disease. Medium D1 without significant disease. Circumflex -medium caliber, 100% distal acute occlusion after takeoff of medium OM 2. 50% ostial OM 2 RCA -dominant, medium caliber, 95%+ mid stenosis at takeoff of RV branch. Distal vessel RCA, PDA without significant disease. LVEDP -19 -- PCI -- Antithrombotic therapy: Heparin, ticagrelor Procedure: Left main cannulated with EBU 3.5 guide Bridge Saw Operator 50 wire placed into OM 2 Whisper wire passed across lesion into distal PLB Distal circumflex lesion predilated with 2.5 compliant balloon Dilated lesion stented with 2.5 x 18 mm Devin drug-eluting Stent post-dilated with 2.75 noncompliant balloon IC vasodilators administered for spasm Post procedure BLAKE 3 flow, stent well expanded with minimal residual stenosis and no apparent cardiac complications. RCA cannulated with JR4 guide Mid RCA stenosis crossed with menhaden vessel pilot 50 wire Mid RCA dilated with 2.5 balloon Mid RCA stented with 2.75 x 22 mm [place] drug-eluting stent Stent postdilated with 3.5 NC IC vasodilators administered for spasm Post procedure BLAKE 3 flow, stent well expanded with minimal residual stenosis and no apparent cardiac complications. Arterial Closure: TR band Summary: 1. Inferior STEMI 2. 100% acute distal circumflex occlusion 3. 95%+ mid RCA stenosis 4. Successful PCI of distal circumflex with single drug-eluting stent (2.5 x 18 mm Devin; postdilated with 2.75 NC). 5. Successful PCI of mid RCA with single drug-eluting stent (2.75 x 22 mm Devin; postdilated with 3.5 NC). Recommendations: Admit to ICU for continued monitoring Loaded with ticagrelor 180 mg in Deep Fryer Assembler Continue dual-antiplatelet therapy for at least 1 year. Trend troponins until peak, Check Echo Uptitrate beta-pat/HUONG as BP allows High-dose statin Consult cardiac Rehab Hemodynamics Rest Ao:: 173/79/125 Final Ao: 117/47/78 LV: 130/19 Recommendations Recommendations: PCI without planned CABG Specimens Specimens: None Radiation Exposure (mGy) 1899 Contrast (mls) 110 Fluids (cc crystalloids) Fluids (cc crystalloids): 96 Drains Drains: None Anesthesia [id number] Procedural Complication(s) None Disposition ICU I attest to the content of the Intraoperative Record and any orders documented therein. Any exceptions are noted below. [facility] Card Cath Procedure Codes Cardiac Catheterization Procedure 1: Cardiovascular Cath Procedures: 18603 Coronaries and LHC (+/-LV) Moderate Sedation Procedure 1: Sedation/Anesthesia: 81299 Mod Sedation by the same physician;Init15 Min Child Age 5 & Up Procedure 2: Sedation/Anesthesia: 80320 Mod Sedation by the same physician; Ea [id number] Minutes Stenting Procedure 1: Cardiovascular Stent Procedures: 27000 Perc transluminal revascularization of acute sub/total occl, aMI Procedure 2: Cardiovascular Stent Procedures: 47519 Ea addl branch of a major coronary artery PG Care Time/CCT Total # of Minutes Spent Total Time Spent with Patient: Total time spent is greater than 50% in coordination of care (as documented) at patient's floor/unit and/or counseling patient:
[2020-07-10] MEDS ORDERED: POLYETHYLENE (MIRALAX) 17 GM PACK PO PRN (19:35)
--- NOTE | 2020-07-10 19:42 | Critical Care Consultation ---
Date of Consultation July 10, 2020 Assessment & Plan (1) STEMI (ST elevation myocardial infarction): Patient presented with inferior STEMI, now status post PCI x2 with 1 drug- eluting stent to the circumflex artery and 1 drug-eluting stent to the RCA Continue ASA, statin, MTP, lisinopril, Brilinta regimen Received loading dose of ticagrelor in [facility] Initial troponin negative, trend for peak Follow-up echo in a.m. Follow-up A1c and lipid panel Heart healthy diet Maximize electrolytes Continuous monitor on telemetry in ICU overnight (2) Hyperlipidemia: Continue statin Follow-up lipid panel (3) Diabetes mellitus: Follow-up hemoglobin A1c ICU hyperglycemic protocol Hold Metformin, continue with sliding scale for timing (4) REMBERTO (acute kidney injury): Creatinine 1.24 on admission without prior study to compare, no history renal disease Suspect there could be element of dehydration as patient was doing yard work prior to this, she is taking p.o. 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 This happened around 4 PM this afternoon. She also had an episode of vomiting in the ER waiting room. She is found to have inferior ST elevation and was taken to the [facility] where she received successful PCI to the RCA x1 and circumflex x1. Patient now presents to the ICU post cath for further monitoring. Currently patient is alert and oriented and appears comfortable on room air and is hemodynamically stable. She denies current syncope or dizziness, chest pain, palpitations, shortness of breath, recent illness or fevers, further nausea or vomiting, abdominal pain, diarrhea, numbness or tingling in hands or feet, or edema. She states that she had her second COVID-19 vaccination approximately 2 weeks ago. Allergies Allergy/AdvReac Type Severity Reaction Status Date / Time Sulfa (Sulfonamide Allergy Intermediate RASH Verified 07/10/20 17:05 Antibiotics) Home Medications Medication Instructions Recorded Confirmed Type aspirin [Aspirin Low Dose] 81 mg PO DAILY 11/19/19 07/10/20 History atorvastatin 40 mg PO DAILY 11/19/19 07/10/20 History venlafaxine 150 mg PO DAILY 11/19/19 07/10/20 History metformin 850 mg PO BID 07/10/20 07/10/20 History Patient History Medical History (Updated 07/10/20 @ 19:58 by EMMANUEL Brerios) Diabetes mellitus Hyperlipidemia No pertinent family history Surgical History No pertinent past surgical history Family History (Updated 07/10/20 @ 19:53 by Flaquita Candelaria DO) Grandmother Stroke Social History Smoking Status: Never smoker Hx Alcohol Use: Yes Alcohol type: wine Hx Substance Use: No Preferred Language: Telugu Communication Ability: Effective [place] Nurse Required: No Beliefs That Will Affect Care: None Current Living Situation: Alone Other Information That Helps Us Care for You: No Feels Safe at Home: Yes Safety Concerns: Feels Safe At This Time Assistive Devices: Glasses, Hearing Aid - Bilateral and Hearing Aid - Left Review of Systems Review of Systems: All systems reviewed & are unremarkable except as noted in HPI & below Physical Exam Constitutional: WD/WN, vitals as above cooperative and comfortable Eyes: PERRL, conjunctivae normal, anicteric sclerae ENMT: external ear and nose normal, oropharynx normal Neck: trachea midline, no thyromegaly Respiratory: normal respiratory effort, lungs clear to auscultation Cardiovascular: RRR, no murmur, no edema Heart Sounds: + 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) Vessels: no JVD Extremities: normal capillary refill; no edema Gastrointestinal (Abdomen): normal bowel sounds, soft, nontender, no hepatosplenomegaly Musculoskeletal: no cyanosis or clubbing, extremities motor strength 5/5 Skin: no rashes, warm and dry Neurologic: PERRL, EOMI, accommodation nl, no face palsy, no dysarthria Psychiatric: A+Ox3, euthymic affect Results & Data Results & Data ([facility]) Vital Signs (Past 12 Hours) Vital Signs Temp Pulse Pulse Resp BP Pulse Ox 07/10/20 18:42 36.5 C 80 20 98 07/10/20 17:23 78 20 94 07/10/20 17:14 78 18 165/94 H 97 07/10/20 16:53 36.4 C L 87 25 H 97 Coding Level of Care Code 49496 Inpt Consult Level 3 Diagnoses STEMI (ST elevation myocardial infarction) I21.3 Hyperlipidemia E78.5 Diabetes mellitus E11.9 REMBERTO (acute kidney injury) N17.9
--- NOTE | 2020-07-10 19:57 | History & Physical Report ---
Date of Service July 10, 2020 Assessment & Plan (1) STEMI (ST elevation myocardial infarction): 70 yo F PMHx DM2, HLD, depression admitted for STEMI now s/p LANRE x2. STEMI: Presented with chest pain, diaphoresis, nausea. EKG with inferior ST elevations. s/p LANRE x2 (one to RCA for 95% stenosis, one to LCx for 100% stenosis). Loaded with Brillinta in laboratory geneticist. Will continue DAPT for one year. Patient started on metoprolol 25mg BID, lisinopril 5mg daily. Atorvastatin 40mg daily increased to 80mg daily. Continue aspirin. Hgb A1c lipid panel with AM labs, Echo ordered. Cardiac rehab consult placed. ICU for close monitoring s/p stent, with eventual downgrade. Elevated creatinine: Creatine 1.24 on admission; no baseline to compare. Received NSS 1L bolus in ER. Repeat BMP in AM. DM2: On metformin only in outpatient setting. A1c ordered with AM labs. ICU hyperglycemia protocol, SSI. HLD: Continue atorvastatin at increased dose, 80mg daily. Depression: Continue home venlafaxine. Code Status: FULL CODE FEN: DM2, Heart healthy diet DVT ppx: Brillinta BID Dispo: ICU for monitoring s/p stent, risk factor modification (2) Hyperlipidemia: (3) Diabetes mellitus: Admission and Anticipated Discharge Date Admission Date: July 10, 2020 History of Present Illness Primary Care Provider: EMMANUEL Jewell 70 yo F PMHx DM2 on metformin, HLD, depression presented to ER for severe chest pain with associated diaphoresis, vomiting that started at 4pm today. She had an eye doctor appointment this morning and noted that her BP was quite high; due to this she scheduled a follow up with Alesha Dickinson. At 4pm she was doing heavy yardwork at her sabianism and started having difficulty breathing and severe chest pain that radiated to her back, prompting her trip to the ER. She denies having had chest pain such as this in the past, but admits that over the last month or so she has had some increase in breathlessness with activity. In the ER patient's initial troponin was negative, however EKG showed inferior ST elevations. Due to a known contrast allergy she received solumedrol and benadryl in the ER, as well as nitro and fentanyl for her chest pain. Dr. Sierra took patient for emergent cath and found 100% LCx and 95% RCA stenosis; LANRE x2 placed without difficulty and patient was transferred to ICU. Also of note, patient's creatinine was 1.24; no baseline to compare. On my interview patient is chest pain free, no shortness of breath, nausea, abdominal pain, dizziness, headache. She admits to some thoracic mild back pain, but "nothing like the pain I had earlier". She is not a smoker, and has never smoked. No family history of OR, but history of CVA in grandmother. Allergies Allergy/AdvReac Type Severity Reaction Status Date / Time Sulfa (Sulfonamide Allergy Intermediate RASH Verified 07/10/20 17:05 Antibiotics) Home Medications Medication Instructions Recorded Confirmed Type aspirin [Aspirin Low Dose] 81 mg PO DAILY 11/19/19 07/10/20 History venlafaxine 150 mg PO DAILY 11/19/19 07/10/20 History metformin 850 mg PO BID 07/10/20 07/10/20 History atorvastatin [Lipitor] 80 mg PO QAM 30 Days #30 tab 07/12/20 Rx lisinopril [Zestril] 5 mg PO QAM 30 Days #30 tab 07/12/20 Rx metoprolol tartrate 25 mg PO BID 30 Days #60 tab 07/12/20 Rx ticagrelor [Brilinta] 90 mg PO BID@0800,2000 30 Days #60 07/12/20 Rx tab Past Med/Surg History Medical History (Updated 07/10/20 @ 22:20 by Johnnie De La Cruz) Diabetes mellitus Hyperlipidemia No pertinent family history Surgical History No pertinent past surgical history Family History (Updated 07/10/20 @ 19:53 by Flaquita Candelaria DO) Grandmother Stroke Social History Smoking Status: Never smoker Hx Alcohol Use: Yes Alcohol type: wine Hx Substance Use: No Preferred Language: Niuean Communication Ability: Effective Improvement Nurse Required: No Beliefs That Will Affect Care: None Current Living Situation: Alone Feels Safe at Home: Yes Assistive Devices: None Review of Systems Review of Systems: All systems reviewed & are unremarkable except as noted in HPI & below (ROS is noted to be at time of interview, see HPI for illness course) Constitutional: no fever, no chills and no malaise Respiratory: no cough and no dyspnea Cardiovascular: no chest pain, no palpitations and no edema Gastrointestinal: no abdominal pain, no constipation and no diarrhea/loose stools Genitourinary: no dysuria and no hematuria Musculoskeletal: + back pain (Thoracic, mild, since her catheterization) Physical Exam Constitutional: WD/WN, vitals as above Eyes: PERRL, conjunctivae normal, anicteric sclerae ENMT: external ear and nose normal, oropharynx normal Neck: normal visual inspection Respiratory: normal respiratory effort, lungs clear to auscultation Cardiovascular: Rate/Rhythm: regular rate and regular rhythm Heart Sounds: + murmur Extremities: no edema Gastrointestinal (Abdomen): normal bowel sounds, soft, nontender, no hepatosplenomegaly Musculoskeletal: no cyanosis or clubbing, extremities motor strength 5/5 Skin: no rashes, warm and dry Neurologic: AAOx3, normal speech. Bilateral UE, LE, and face without sensory or motor deficits. No tremor. Psychiatric: A+Ox3, euthymic affect Results & Data Results & Data ([facility]) Vital Signs (Past 12 Hours) Vital Signs Temp Pulse Pulse Resp BP Pulse Ox 07/10/20 18:42 36.5 C 80 20 98 07/10/20 17:23 78 20 94 07/10/20 17:14 78 18 165/94 H 97 07/10/20 16:53 36.4 C L 87 25 H 97 Code Status & VTE Plan VTE Prophylaxis Plan VTE Prophylaxis will be ordered: Yes Supervising Physician Co-Signing Physician Notes I personally saw and examined the patient. I verified all [place] points and agree with resident physician Dr Flaquita Mccauley with the following exceptions and/or additions: 70-year-old female admission for chest pain with inferior ST elevations. Taken emergently to the [facility] Specialist. Patient seen in the ICU following successful PCI to RCA and circumflex. Hemodynamically stable and chest pain-free after cardiac catheterization. O/E alert and orientated x3, chest CTA B, heart sounds 1+2, RRR, no murmurs, Abdomen SNT, bowel sounds normal A/P STEMI -chest pain-free following successful PCI. Appreciate cardiology management with aspirin, Brilinta, metoprolol, lisinopril, atorvastatin started. Patient admitted to ICU to monitor for arrhythmia post STEMI. Resident Activity Tracking Resident Involvement: Resident Care Provided Care Provided: Adult Hospital Medicine (1) Diabetes mellitus Diabetes mellitus complication status: without complication Diabetes mellitus long chain quiller tender insulin use: without nursing home use Diabetes mellitus type: type 2 Qualified Code(s): E11.9 - Type 2 diabetes mellitus without complications (2) Hyperlipidemia Hyperlipidemia type: unspecified Qualified Code(s): E78.5 - Hyperlipidemia, unspecified (3) STEMI (ST elevation myocardial infarction) Involved coronary artery: unspecified coronary artery Qualified Code(s): I21.3 - ST elevation (STEMI) myocardial infarction of unspecified site
[2020-07-10] MEDS ORDERED: POTASSIUM CHLORIDE CRTAB 20 MEQ TABCR PO STA (20:06)
[2020-07-10] MEDS: METOPROLOL TARTRATE 25 MG TAB PO SCH (20:43)
[2020-07-10] MEDS: INSULIN ASPART 100 UNITS/ML 3 ML PEN SC SCH (20:44)
[2020-07-11 01:35] LABS: Appearance Urine Clear (Clear); Bacteria Urine Automated Negative (Negative); Bilirubin Urine Negative (Negative); Blood Urine Trace (Negative); Cast Urine Automated 0 /lpf (0-5); Color Urine Yellow; Glucose Urine UA 1+ (Negative); Ketones Urine Trace (Negative); Leukocyte Esterase Urine Negative (Negative); Nitrite Urine Negative (Negative); Protein Urine Negative (Negative); Specific Gravity Urine 1.042 (1.000-1.030); Urobilinogen Urine Negative (Negative); pH Urine 6.5 (4.5-7.5)
[2020-07-11 04:59] LABS: Basophils # (auto) 0.01 K/uL (0-0.2); Basophils % (auto) 0.1 %; Hematocrit (blood only) 39.4 % (37-47); Hemoglobin 13.5 g/dL (12.0-16.0); Immature Granulocytes # (auto) 0.06 K/uL (0.00-0.02); Immature Granulocytes % (auto) 0.4 %; Lymphocytes # (auto) 1.06 K/uL (1.2-3.4); Lymphocytes % (auto) 6.2 %; Mean Corpuscular Hgb Conc 34.3 g/dL (32-36); Mean Corpuscular Volume 90.6 fL (80-100); Mean Platelet Volume 9.6 fL (7.4-10.4); Monocytes # (auto) 0.19 K/uL (0.11-0.59); Monocytes % (auto) 1.1 %; Neutrophils # (auto) 15.81 K/uL (1.4-6.5); Neutrophils % (auto) 92.2 %; Platelet Count 413 K/uL (130-400); RDW Coefficient of Variation 13.2 % (11.5-14.5); RDW Standard Deviation 43.9 fL (36.4-46.3); Red Blood Count 4.35 M/uL (4.2-5.4); White Blood Count 17.13 K/uL (4.8-10.8)
[2020-07-11 05:48] LABS: BUN Creatinine Ratio 19.8 (10-20); Blood Urea Nitrogen 18 mg/dl (7-18); Calcium 9.3 mg/dl (8.5-10.1); Carbon Dioxide 23 mmol/L (21-32); Chloride 109 mmol/L (98-107); Chol HDL Ratio 3; Cholesterol 180 mg/dl (0-200); Creatinine Clr Calc Pharmacy 60.3 ml/min; Est GFR (African American) 73.6; Est GFR (Non-African American) 63.5; Glucose 209 mg/dl (70-99); HDL Cholesterol 56 mg/dl; LDL Cholesterol Direct 110 mg/dl; Magnesium 2.2 mg/dl (1.8-2.4); Phosphorus 3.3 mg/dl (2.5-4.9); Potassium 4.3 mmol/L (3.5-5.1); Sodium 139 mmol/L (136-145); Triglycerides 73 mg/dl (0-150); VLDL Cholesterol 15 mg/dl
[2020-07-11 06:40] LABS: Estimated Average Glucose 143 mg/dl; Hemoglobin A1C 6.6 % (4.5-5.6)
[2020-07-11] MEDS: TICAGRELOR 90 MG TAB PO SCH ×2 (07:58→21:07)
[2020-07-11] MEDS: INSULIN ASPART 100 UNITS/ML 3 ML PEN SC SCH ×4 (07:59→21:15)
[2020-07-11] MEDS: lisinopril 5 MG TAB PO SCH (08:00)
[2020-07-11] MEDS: ASPIRIN 81 MG ECTAB PO SCH (08:00)
[2020-07-11] MEDS: ATORVASTATIN 40 MG TAB PO SCH (08:01)
[2020-07-11] MEDS: VENLAFAXINE HCL XR 150 MG CAPXR PO SCH (08:01)
[2020-07-11] MEDS: METOPROLOL TARTRATE 25 MG TAB PO SCH ×2 (08:01→21:06)
--- NOTE | 2020-07-11 08:52 | Critical Care Progress Note ---
Date of Service July 11, 2020 Assessment & Plan (1) STEMI (ST elevation myocardial infarction): Reason critically ill: 70 yo female presented 07/10/20 with CP radiating to back and left shoulder found to have STEMI. Now s/p PCI x2 (RCA x1, circumflex x1) performed on 07/10/20. 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 - Repeat ECHO pending today - A1c 6.6% today (07/11/20) - Recommend heart healthy diet - Monitor electrolytes and replete as necessary - Continue to monitor on telemetry Hyperlipidemia - Repeat lipid profile today: trig 73, total cholesterol 180, LDL 110, HDL 56 - Statin increased to high dose statin; continue atorvastatin 80mg po qAM Respiratory: - No current concerns GI/Nutrition: - Carb consistent/DM2/heart healthy diet Renal/Lytes: REMBERTO (acute kidney injury), resolved - Creatinine 1.24 on admission without prior study to compare, no history renal disease - Suspect component of dehydration (doing yard work at [employer] prior to this episode) vs. ATN secondary to ACS - Creatinine this AM improved at 0.91 - Trend routine BMPs and replete electrolytes as indicated Genitourinary: - No current concerns Endo: Diabetes mellitus - Hgb A1c today 6.6% - Hold Metformin, continue with sliding scale for timing - Glycemic consult Heme: - No current concerns - No signs of bleeding - H&H stable at 13.5 & 39.4 ID: - No current concerns Lines/IV Access: PIV DVT Prophylaxis: Encourage OOB; no chemoprophylaxis at this time Dispo: Plan to downgrade to floor/tele status today (2) Hyperlipidemia: (3) Diabetes mellitus: (4) REMBERTO (acute kidney injury): Admission and Anticipated Discharge Date Admission Date: July 10, 2020 Supervising Physician Co-Signing Physician Notes Dr. Childress Was the resident-physician during care of patient. I separately ev aluated patient for bettencourt portions of the history and the exam. I was present during the critical portion of medical decision making, and I discussed the case with the resident. I generally agree with the findings and plan except for any additions/exceptions noted. Status post PCI x2 with 1 drug-eluting stent to the circumflex and one drug- eluting stent to the RCA. Doing very well this morning. Echocardiogram results pending. Continue with beta-pat, dual antiplatelet therapy and high-dose statin. Pharmacy consulted for management of hyperglycemia. A1c 6.6. LDL 110. Stable for transfer to floor. Harriet Saenz (Peg) is a 70 yo female who presented on 07/10/20 with left sided CP radiating to the back and left shoulder. Found to have inferior STEMI and taken to cathode [facility] where she received PCI x2 with 1 LANRE to the circumflex and 1 LANRE to the RCA. This AM, patient states that she is doing "very well." She does complain of a mild 4/10 headache to the top of her head that is dull in nature. Denies changes in vision, dizziness, or lightheadedness. Patient sitting up in bed eating breakfast; denies difficulty eating, nausea, vomiting or abdominal pain. Patient also denies CP, SOB, cough, congestion, sore throat, leg pain, leg swelling. She has no specific complaints, concerns, or questions at this time. Review of Systems Constitutional: no fever and no chills no decreased appetite Eyes: no problem reported Ear, Nose, Mouth, Throat: no nasal congestion and no sore throat Respiratory: no cough and no dyspnea Cardiovascular: no chest pain, no radiating jaw, neck or arm pain, no dyspnea, no lightheadedness, no edema and no calf pain Gastrointestinal: no abdominal pain, no nausea and no vomiting Genitourinary: no dysuria and no hematuria Musculoskeletal: no swelling and no muscle weakness Neurologic: no dizziness and no headache(s) Physical Exam Physical Exam: GENERAL: No acute distress. Well developed and well nourished. Vital signs reviewed as above. EYES: EOMI. Anicteric sclerae. HENT: Moist mucous membranes. No JVD. RESPIRATORY: Clear to auscultation bilaterally. No wheezing, rales, or rhonchi. CARDIOVASCULAR: Regular rate and rhythm. 2/6 JOHNY. ABDOMEN: Soft, non-tender and non-distended. Normal bowel sounds. EXTREMITIES: No edema. Non-tender. No tenderness to deep calf squeeze bilaterally. SKIN: Warm, dry. Ecchymosis on right forearm consistent with PCI procedure performed yesterday. NEUROLOGIC: No focal neurological deficits. CN II-XII grossly intact. 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 5/5 strength BLE w/ hip flexion. PSYCHIATRIC: Cooperative. Appropriate mood and affect. Results & Data Results & Data ([facility]) Vital Signs (Past 12 Hours) Vital Signs Temp Pulse Pulse Resp BP BP Pulse Ox 07/11/20 08:00 36.8 C 75 80 17 141/77 H 97 07/11/20 07:58 69 14 141/77 H 95 07/11/20 07:14 62 15 135/79 95 07/11/20 06:00 63 17 93 07/11/20 05:57 65 14 155/87 H 95 07/11/20 05:27 59 L 13 128/76 98 07/11/20 05:22 63 13 97 07/11/20 04:00 36.7 C 61 13 97 07/11/20 03:57 65 16 117/58 L 93 07/11/20 03:00 61 20 94 07/11/20 02:57 62 20 122/60 94 07/11/20 02:00 62 18 95 07/11/20 01:58 62 16 95 07/11/20 01:57 62 18 128/73 95 07/11/20 01:00 61 15 96 07/11/20 00:37 63 18 121/65 95 07/11/20 00:20 64 07/11/20 00:08 65 22 94 07/11/20 00:07 64 18 146/77 H 94 07/11/20 00:00 36.7 C 63 19 95 07/10/20 23:37 65 18 126/70 95 07/10/20 23:30 65 22 94 07/10/20 23:08 65 17 120/54 L 94 07/10/20 23:00 64 17 94 07/10/20 22:31 64 20 137/64 94 07/10/20 22:30 61 19 95 07/10/20 22:17 65 14 95 07/10/20 22:16 64 18 110/64 95 07/10/20 22:01 70 18 123/60 95 07/10/20 22:00 69 16 95 07/10/20 21:46 72 20 152/56 H 96 07/10/20 21:31 78 19 143/71 H 96 07/10/20 21:17 81 20 96 07/10/20 21:16 85 18 123/69 97 07/10/20 21:15 81 13 97 07/10/20 21:01 103 H 22 116/83 97 07/10/20 21:00 91 H 22 96 07/10/20 20:46 76 17 130/70 97 07/10/20 20:45 81 22 97 Resident Activity Tracking Resident Involvement: Resident Care Provided Care Provided: Adult Hospital Medicine (1) Diabetes mellitus Diabetes mellitus complication status: without complication Diabetes mellitus buttermaker helper insulin use: without buttermaker helper use Diabetes mellitus type: type 2 Qualified Code(s): E11.9 - Type 2 diabetes mellitus without complications (2) Hyperlipidemia Hyperlipidemia type: unspecified Qualified Code(s): E78.5 - Hyperlipidemia, unspecified (3) STEMI (ST elevation myocardial infarction) Involved coronary artery: unspecified coronary artery Qualified Code(s): I21.3 - ST elevation (STEMI) myocardial infarction of unspecified site
[2020-07-11] MEDS ORDERED: LANTUS PER UNIT CHARGE SQ ONE (10:00)
[2020-07-11] MEDS ORDERED: PHARMACY GLYCEMIC MGMT CONSULT SCH (10:33)
--- NOTE | 2020-07-11 10:34 | Billing Data ---
Date of Service July 11, 2020 Coding Level of Care Code 18031 Subseq Hosp Care Lvl 2
--- NOTE | 2020-07-11 10:51 | Cardiology Progress Note ---
Date of Service July 11, 2020 Assessment & Plan (1) STEMI (ST elevation myocardial infarction): Post primary PCI with single LANRE to distal circumflex Post PCI to severe mid RCA with single LANRE 2. Preserved LV function 3. Type 2 diabetes 4. Dyslipidemia Patient doing well from a cardiac standpoint. No recurrent chest pain. Mild troponin elevation. Electrically stable. Preserved LV function on echo. No access site complications. Continue DAPT with aspirin, ticagrelor Continue current metoprolol, lisinopril Continue increased atorvastatin From a cardiac standpoint if troponin downtrending, and feeling well later this afternoon could potentially go home today. Follow-up with me in 2 weeks. Further discussion of cardiac rehab at that time. Admission and Anticipated Discharge Date Admission Date: July 10, 2020 Subjective Feeling well this morning. Denies any chest pain. No other new concerns. Telemetry reviewedno recorded events Echo reviewednormal LV function, very mild inferolateral hypokinesis, mild AI. Review of Systems Review of Systems: All systems reviewed & are unremarkable except as noted in HPI & below Physical Exam Physical Exam: General: Comfortable, no acute distress HEENT: Sclerae anicteric Lungs: Clear to auscultation bilaterally Cardiac: Regular rate and rhythm, no murmurs. Abdomen: Soft, nontender Extremities: Warm, well perfused, no edema. Right radial artery access site with no ecchymosis, hematoma. Distal pulse and sensation intact. Skin: No rashes or lesions. Neuro: Nonfocal Psych: Alert orient x3, normal affect and mood Results & Data ([facility]) Vital Signs (Past 12 Hours) Vital Signs Temp Pulse Pulse Resp BP BP Pulse Ox 07/11/20 08:00 98.2 F 75 80 17 141/77 H 97 07/11/20 07:58 69 14 141/77 H 95 07/11/20 07:14 62 15 135/79 95 07/11/20 06:00 63 17 93 07/11/20 05:57 65 14 155/87 H 95 07/11/20 05:27 59 L 13 128/76 98 07/11/20 05:22 63 13 97 07/11/20 04:00 98.1 F 61 13 97 07/11/20 03:57 65 16 117/58 L 93 07/11/20 03:00 61 20 94 07/11/20 02:57 62 20 122/60 94 07/11/20 02:00 62 18 95 07/11/20 01:58 62 16 95 07/11/20 01:57 62 18 128/73 95 07/11/20 01:00 61 15 96 07/11/20 00:37 63 18 121/65 95 07/11/20 00:20 64 07/11/20 00:08 65 22 94 07/11/20 00:07 64 18 146/77 H 94 07/11/20 00:00 98.1 F 63 19 95 07/10/20 23:37 65 18 126/70 95 07/10/20 23:30 65 22 94 07/10/20 23:08 65 17 120/54 L 94 07/10/20 23:00 64 17 94 PG Care Time/CCT Total # of Minutes Spent Total Time Spent with Patient: Total time spent is greater than 50% in coordination of care (as documented) at patient's floor/unit and/or counseling patient: Coding Level of Care Code 21587 Subseq Hosp Care Lvl 3 Diagnoses STEMI (ST elevation myocardial infarction) I21.3 Involved coronary artery: unspecified coronary artery (1) STEMI (ST elevation myocardial infarction) Involved coronary artery: unspecified coronary artery Qualified Code(s): I21.3 - ST elevation (STEMI) myocardial infarction of unspecified site
--- NOTE | 2020-07-11 12:33 | Pharmacy Report ---
Pharmacy Glycemic Short Note 2 - Date of Service July 11, 2020 - Glycemic Short BSG Results (Last 24 hours): 07/10/20 07/10/20 07/10/20 17:13 17:18 19:43 Glucose 138 H POC Glucose 154 H POC Glucose (other) 140 H 07/11/20 07/11/20 07/11/20 04:15 07:14 11:26 Glucose 209 H POC Glucose 171 H 148 H POC Glucose (other) OUTPATIENT ANTIDIABETIC REGIMEN: * Metformin 850mg BID * A1c = 6.6% 07/11/20 ASSESSMENT: * Reasonably well controlled type 2 diabetic admitted for STEMI * She is now s/p PCI w/ 2 LANRE * Of note, she did receive IV methylprednisolone yesterday which likely led to mild hyperglycemia * Metformin is on hold due to IV contrast admin * Will initiate basal/bolus SQ regimen based upon weight and mild-moderate stress level PLAN FOR INPATIENT GLYCEMIC CONTROL: * Hold outpatient oral diabetes medications (metformin) * Basal insulin * Lantus 15 units SQ x 1 this AM only - reassess tomorrow * Bolus insulin * NovoLog per scale ACHS or Q6hrs while NPO * Goal Range: Low 110 mg/dL - High 140 mg/dL * Correction Factor: 30 mg/dL/unit * Nutritional / Prandial insulin per carb ratio of 1 unit per 10 grams CHO consumed PLAN FOR DISCHARGE: * A1c 6.6%, may resume metformin on discharge if no contraindications present.
--- NOTE | 2020-07-11 13:05 | Medical Student Progress Note ---
Date of Service July 11, 2020 Assessment & Plan (1) STEMI (ST elevation myocardial infarction): 1. Inferior Wall Myocardial Infarction Letha is a 70-year-old female with a PMHx of DM and dyslipidemia who presented to [facility] emergency department on 07/10/20 secondary to substernal chest pain radiating to the bilateral arms. ECG showed an inferior MN and cardiac catheterization revealed 100% occlusion of the left circumflex artery and 95% occlusion of the right coronary artery. Two drug-eluting stents were placed and she is now being monitored for potential post-MN complications and receiving educated on medication and lifestyle management moving forward. * ECG on admission: ST elevation leads II, III, aVF, V6. ST depression leads I, aVL, Vi, V2, V3. * Cardiac catheterization performed 07/10/20. 100% distal LCX occlusion and 95% mid RCA occlusion. Drug-eluting stents deployed in LCX and RCA. * Continue ASA 81 mg. DAPT with Ticagrelor 90 mg BID. * Metoprolol tartrate 25 mg BID * Lisinopril 5 mg * Lipid Panel: Triglycerides 73, Involved coronary artery: unspecified coronary artery Qualified Code(s): I21.3 - ST elevation (STEMI) myocardial infarction of unspecified site Admission and Anticipated Discharge Date Admission Date: July 10, 2020 Supervising Attestation I personally examined the patient and verified all bettencourt points of history and exam, discussed case, and agree with decision making with Fiona Ortega MS4 Feeling good overall. No chest pain. No shortness of breath. Notes she pretty much immediately felt better once the stents were in place. Vitals noted, in general she is awake and alert pleasant no distress. HEENT normocephalic atraumatic mucous membranes moist. Breathing unlabored no accessory muscle use good effort. Skin shows no rashes no pallor or icterus. Neuro shows no focal deficits. STEMInow status post cath and stenting. Med management, secondary risk reduction, lifestyle change. Otherwise as above. Subjective Letha is feeling well this morning. She denies any chest pain, palpitations, or shortness of breath. She notes good urine output with dark-yellow appearance. She did not have any arrhythmias or other issues overnight. Review of Systems Constitutional: + fatigue Respiratory: no cough, no dyspnea and no pain on inspiration Cardiovascular: as per Subjective / HPI Gastrointestinal: no abdominal pain, no heartburn, no nausea and no vomiting Genitourinary: as per Subjective / HPI Musculoskeletal: no myalgia, no muscle weakness and no body aches Neurologic: no problem reported Physical Exam Constitutional: WD/WN, vitals as above no acute distress Eyes: no conjunctival abnormality Neck: normal visual inspection Respiratory: normal respiratory effort, lungs clear to auscultation Cardiovascular: RRR, no murmur, no edema Palpation: normal PMI Vessels: no JVD Extremities: normal capillary refill; no edema Gastrointestinal (Abdomen): normal bowel sounds, soft, nontender, no hepatosplenomegaly Skin: no rashes, warm and dry Psychiatric: A+Ox3, euthymic affect Results & Data ([facility]) Vital Signs (Past 12 Hours) Vital Signs Temp Pulse Pulse Resp BP BP Pulse Ox 07/11/20 11:36 36.7 C 63 18 119/62 97 07/11/20 11:27 36.9 C 61 15 119/62 95 07/11/20 09:57 57 L 17 157/65 H 96 07/11/20 08:57 57 L 16 139/100 95 07/11/20 08:00 36.8 C 75 80 17 141/77 H 97 07/11/20 07:58 69 14 141/77 H 95 07/11/20 07:14 62 15 135/79 95 07/11/20 06:00 63 17 93 07/11/20 05:57 65 14 155/87 H 95 07/11/20 05:27 59 L 13 128/76 98 07/11/20 05:22 63 13 97 07/11/20 04:00 36.7 C 61 13 97 07/11/20 03:57 65 16 117/58 L 93 07/11/20 03:00 61 20 94 07/11/20 02:57 62 20 122/60 94 07/11/20 02:00 62 18 95 07/11/20 01:58 62 16 95 07/11/20 01:57 62 18 128/73 95 07/11/20 01:00 61 15 96 Laboratory Results Sodium 139, Potassium 4.3, Calcium 9.3, Magnesium 2.2, Phosphorus 3.3 BUN 18, Cr 0.91 Lipid Panel: Triglycerides 73, Total cholesterol 180, LDL 110, HDL 56 Troponin 6.57 (2.89 at admission) CK-MB 1.3 HbA1c 6.6 Diagnostic Findings Catheterization: -100% occlusion of distal LCX -95% occlusion of mid RCA
--- NOTE | 2020-07-11 14:30 | XCELERA ---
[id number]
--- NOTE | 2020-07-11 16:02 | Billing Data ---
Date of Service July 11, 2020 Coding Level of Care Code 12440 Subseq Hosp Care Lvl 3
--- NOTE | 2020-07-11 16:06 | Electrocardiogram Report ---
Test Reason : Blood Pressure : / mmHG Vent. Rate : 082 BPM Atrial Rate : 082 BPM P-R Int : 180 ms QRS Dur : 080 ms QT Int : 372 ms P-R-T Axes : 046 053 088 degrees QTc Int : 434 ms Normal sinus rhythm ST elevation consider inferolateral injury or acute infarct Posterior injury pattern ACUTE ND / STEMI Abnormal ECG No previous ECGs available Confirmed by Garrick Murphy ([id number]) on 07/11/2020 4:05:44 PM Referred By: REFERRED SELF Confirmed By:Garrick Murphy
--- NOTE | 2020-07-11 16:18 | Electrocardiogram Report ---
Test Reason : Blood Pressure : / mmHG Vent. Rate : 062 BPM Atrial Rate : 062 BPM P-R Int : 192 ms QRS Dur : 082 ms QT Int : 428 ms P-R-T Axes : 056 -27 000 degrees QTc Int : 434 ms Normal sinus rhythm Nonspecific T wave abnormality Abnormal ECG When compared with ECG of 10-JUL-2020 17:01, (unconfirmed) Significant changes have occurred Confirmed by Garrick Murphy ([id number]) on 07/11/2020 4:18:16 PM Referred By: REFERRED SELF Confirmed By:Garrick Murphy
[2020-07-12] MEDS ORDERED: LANTUS PER UNIT CHARGE SQ ONE (08:00)
[2020-07-12 08:08] LABS: Basophils # (auto) 0.04 K/uL (0-0.2); Basophils % (auto) 0.3 %; Eosinophils % (auto) 1.3 %; Hematocrit (blood only) 37.8 % (37-47); Immature Granulocytes # (auto) 0.04 K/uL (0.00-0.02); Immature Granulocytes % (auto) 0.3 %; Lymphocytes # (auto) 2.98 K/uL (1.2-3.4); Mean Corpuscular Hemoglobin 31.2 pg (25-34); Mean Corpuscular Hgb Conc 34.4 g/dL (32-36); Mean Corpuscular Volume 90.6 fL (80-100); Mean Platelet Volume 9.7 fL (7.4-10.4); Monocytes # (auto) 1.26 K/uL (0.11-0.59); Neutrophils # (auto) 11.18 K/uL (1.4-6.5); Neutrophils % (auto) 71.1 %; Platelet Count 428 K/uL (130-400); RDW Coefficient of Variation 13.7 % (11.5-14.5); Red Blood Count 4.17 M/uL (4.2-5.4)
[2020-07-12] MEDS: ATORVASTATIN 40 MG TAB PO SCH (08:20)
[2020-07-12] MEDS: METOPROLOL TARTRATE 25 MG TAB PO SCH (08:20)
[2020-07-12] MEDS: ASPIRIN 81 MG ECTAB PO SCH (08:20)
[2020-07-12] MEDS: lisinopril 5 MG TAB PO SCH (08:20)
[2020-07-12] MEDS: TICAGRELOR 90 MG TAB PO SCH (08:20)
[2020-07-12] MEDS: VENLAFAXINE HCL XR 150 MG CAPXR PO SCH (08:20)
[2020-07-12 08:34] LABS: BUN Creatinine Ratio 24.9 (10-20); Calcium 9.3 mg/dl (8.5-10.1); Est GFR (African American) 75.6; Est GFR (Non-African American) 65.2; Potassium 3.9 mmol/L (3.5-5.1)
[2020-07-12] MEDS: INSULIN ASPART 100 UNITS/ML 3 ML PEN SC SCH ×3 (08:58→12:09)
--- NOTE | 2020-07-12 09:59 | Med Student Discharge Summary ---
Date of Service July 12, 2020 Admission HPI Per Admitting Provider 70 yo F PMHx DM2 on metformin, HLD, depression presented to ER for severe chest pain with associated diaphoresis, vomiting that started at 4pm today. She had an eye doctor appointment this morning and noted that her BP was quite high; due to this she scheduled a follow up with Alesha Dickinson. At 4pm she was doing heavy yardwork at her jain and started having difficulty breathing and severe chest pain that radiated to her back, prompting her trip to the ER. She denies having had chest pain such as this in the past, but admits that over the last month or so she has had some increase in breathlessness with activity. In the ER patient's initial troponin was negative, however EKG showed inferior ST elevations. Due to a known contrast allergy she received solumedrol and benadryl in the ER, as well as nitro and fentanyl for her chest pain. Dr. Sierra took patient for emergent cath and found 100% LCx and 95% RCA stenosis; LANRE x2 placed without difficulty and patient was transferred to ICU. Also of note, patient's creatinine was 1.24; no baseline to compare. On my interview patient is chest pain free, no shortness of breath, nausea, abdominal pain, dizziness, headache. She admits to some thoracic mild back pain, but "nothing like the pain I had earlier". She is not a smoker, and has never smoked. No family history of SC, but history of CVA in grandmother. Discharge Data Consultations 07/10/20 18:37 Consult Cardiac Rehabilitation Routine Consult Mortarman Routine Procedures Performed Operation Date: 07/10/20 17:30 Actual Procedures s Cineradiography w/Routine Exam - Maximiliano Sierra MD p Aspiration/PCI w/LANRE for Stemi - Maximiliano Sierra MD s Drug Eluting Stent each ADDTL Vessel - Maximiliano Sierra MD s Cath, Left with Cors and Vent - Maximiliano Sierra MD Hospital Course (1) STEMI (ST elevation myocardial infarction): 1. Inferior Wall Myocardial Infarction Letha Saenz is a 70-year-old female with a PMHx of DM and dyslipidemia who presented to [facility] emergency department on 07/10/20 secondary to substernal chest pain radiating to the bilateral arms. ECG showed an inferior SC and cardiac catheterization revealed 100% occlusion of the left circumflex artery and 95% occlusion of the right coronary artery. Two drug-eluting stents were placed and she is now being monitored for potential post-SC complications and receiving educated on medication and lifestyle management moving forward. * ECG on admission: ST elevation leads II, III, aVF, V6. ST depression leads I, aVL, Vi, V2, V3. * Cardiac catheterization performed 07/10/20. 100% distal LCX occlusion and 95% mid RCA occlusion. Drug-eluting stents deployed in LCX and RCA. * Continue ASA 81 mg. DAPT with Ticagrelor 90 mg BID. * Metoprolol tartrate 25 mg BID * Lisinopril 5 mg * Lipid Panel: Triglycerides 73, Total Cholesterol 180, LDL 110, HDL 56. Increased Atorvastatin dose to 80 mg. * Discussed Lifestyle modification including the importance of 30 minutes of cardiovascular exercise per day and a Mediterranean diet * Recommend gradual return to physical activity follow discharge. No exercise for first 1-2 days followed by slow introduction of cardiovascular exercise over next few weeks * Plan to discharge 07/12/20 2. Type 2 Diabetes Mellitus The patient has well-controlled T2DM with a most recent HbA1c of 6.6% * Blood sugar managed with SSI during hospitalization. Metformin held. * Resume Metformin at same dose upon discharge Code Status: Full Code FEN: VTE PPx: Disposition: Discharge 07/12/20 Discharge Plan Discharge Items Patient Disposition: Home - Self-Care Reason For Visit: STEMI Discharge Diagnosis: STEMI s/p drug-eluting stent placement Activity: Per Instructions section Non-emergency contact: Primary Care Provider and [employer] [facility] Manager Call non-emergency contact if: you have any medication questions and your symptoms worsen Follow-up/Referrals: Alesha Nguyen CRNP [Primary Care Provider] - 07/17/20 1:10 pm Diet: Carb Consistent or DM2 and Heart Healthy Addtl Attending Provider Instructions: You were admitted to [facility] due to chest pain, which was found to be caused by myocardial infarction. You were subsequently taken to cardiac catheterization and found to have a 100% occlusion of your left circumflex artery and a 95% occlusion of your right gila nary artery. To resolve this you had 2 drug-eluting stents placed. After stent placement you will need to take medications to avoid the risk of future cardiovascular events. The medications you will take are as follow: * Ticagrelor 90 mg twice daily * Aspirin 81 mg daily * Metoprolol tartrate 25 mg twice daily * Lisinopril 5 mg daily * Atorvastatin 80 mg daily You should continue to take all your other previously prescribed medications as directed. We recommend that you follow with your sack keeper for post stent placement care and follow with your primary care provider for discussion of your hospitalization and continued management of your chronic conditions. As discussed, we recommend that you adopt some lifestyle modifications including healthier dietary habits and increased physical activity. Specifically, we recommend 30 minutes per day of cardiovascular exercise in the heart rate zone that we discussed. With regard to diet, your main goals are to follow a Mediterranean diet rich in fruits, vegetables, and lean meat and to reduce snacking and late night eating. If you develop any concerning symptoms, including but not limited to chest pain, palpitations, shortness of breath, fainting, loss of consciousness, or any other serious symptoms please contact a healthcare provider or seek emergency medical care. Thank you for allowing us to participate in your care. Pending Studies at Discharge: No Stand-Alone Forms: My [facility], Smoking Cessation Medications and DC Order Prescriptions: New lisinopril [Zestril] 5 mg Tablet 5 mg PO QAM 30 Days Qty: 30 RF: 0 metoprolol tartrate 25 mg Tablet 25 mg PO BID 30 Days Qty: 60 RF: 0 Brilinta 90 mg Tablet 90 mg PO BID@0800,2000 30 Days Qty: 60 RF: 0 atorvastatin [Lipitor] 80 mg tablet 80 mg PO QAM 30 Days Qty: 30 RF: 0 Continued venlafaxine 150 mg capsule,extended release 24hr 150 mg PO DAILY RF: 0 aspirin [Aspirin Low Dose] 81 mg Tablet,Delayed Release (Dr/Ec) 81 mg PO DAILY RF: 0 metformin 850 mg tablet 850 mg PO BID RF: 0 Discontinued atorvastatin 40 mg tablet 40 mg PO DAILY RF: 0 Discharge Orders: Discharge Order (Routine); Ordered 07/12/20 Ordered By: Partha Garcia/Other Patient Handouts: Managing Type 2 Diabetes, 5 Steps for Eating Healthier, Managing Diabetes: The A1C Test, Heart Attack Questions Admission Data Admit Date/Time: 07/10/20 18:37 Attending Provider: Leonard Samayoa Admit Provider: Maximiliano Sierra Primary Care Provider: Alesha Nguyen Other Providers: Curtis Mustafa Other Interventions: Discharge Summary Assessment (RN) Last Done: 07/12/20 11:03 Supervising Attestation I personally examined the patient and verified all bettencourt points of history and exam, discussed case, and agree with decision making with Fiona Ortega MS4 Feels good. Feels up to going home. Cardiology input appreciated. Expresses good understanding of medication, as well as lifestyle measures, for secondary risk reduction. Vitals noted, in general she is awake and alert pleasant no distress. HEENT normocephalic atraumatic mucous membranes moist. Breathing unlabored no accessory muscle use good effort. Skin shows no rashes no pallor or icterus. Neuro shows no focal deficits. STEMInow status post cath and stenting. Stable for home, ongoing med management, secondary risk reduction, lifestyle change. Outlined all with patient personally, as well as asked patient to review what has been discussed with her before.
--- NOTE | 2020-07-12 11:22 | Billing Data ---
Date of Service July 10, 2020 Coding Level of Care Code 22625 Initial Inpt Care Lvl 3
[2020-07-12] MEDS ORDERED: TICAGRELOR 90 MG Homepack PO STA (11:54)
--- NOTE | 2020-07-12 12:13 | Cardiology Progress Note ---
Date of Service July 12, 2020 Assessment & Plan (1) STEMI (ST elevation myocardial infarction): Post primary PCI with single LANRE to distal circumflex Post PCI to severe mid RCA with single LANRE 2. Preserved LV function 3. Type 2 diabetes 4. Dyslipidemia 5. Mild mitral regurgitation. Okay from a cardiac standpoint for discharge today. Follow-up with me in 2 weeks. Will discuss cardiac rehab at that time. Discharge on DAPT with aspirin, ticagrelor. Continue metoprolol, lisinopril and increase atorvastatin. Admission and Anticipated Discharge Date Admission Date: July 10, 2020 Subjective Feeling well today. No chest pain. No significant shortness of breath. Telemetry reviewedno events. Review of Systems Review of Systems: All systems reviewed & are unremarkable except as noted in HPI & below Physical Exam Physical Exam: General: Comfortable, no acute distress HEENT: Sclerae anicteric Lungs: Clear to auscultation bilaterally Cardiac: Regular rate and rhythm, no murmurs. Abdomen: Soft, nontender Extremities: Warm, well perfused, no edema. Right radial artery access site with no ecchymosis, hematoma. Distal pulse and sensation intact. Skin: No rashes or lesions. Neuro: Nonfocal Psych: Alert orient x3, normal affect and mood Results & Data ([facility]) Vital Signs (Past 12 Hours) Vital Signs Temp Pulse Pulse Resp BP Pulse Ox 07/12/20 11:44 98.1 F 70 16 120/69 96 07/12/20 08:00 62 07/12/20 07:30 98.2 F 87 18 134/64 98 07/12/20 05:43 64 07/12/20 04:17 98.1 F 66 18 129/57 L 97 PG Care Time/CCT Total # of Minutes Spent Total Time Spent with Patient: Total time spent is greater than 50% in coordination of care (as documented) at patient's floor/unit and/or counseling patient: Coding Level of Care Code 35386 Subseq Hosp Care Lvl 2 Diagnoses STEMI (ST elevation myocardial infarction) I21.3 Involved coronary artery: unspecified coronary artery (1) STEMI (ST elevation myocardial infarction) Involved coronary artery: unspecified coronary artery Qualified Code(s): I21.3 - ST elevation (STEMI) myocardial infarction of unspecified site
[2020-07-12] MEDS ORDERED: TICAGRELOR 90 MG TAB PO SCH (12:15)
--- NOTE | 2020-07-12 16:30 | Billing Data ---
Date of Service July 12, 2020 Coding Level of Care Code D/C Day Management <30 mins
== END 2020-07-12 12:58 | disposition home or self-care (01) | DRG 246 ==
LOC: ED 16:46 → CC 17:29 → 1E 17:29 → SUATTDRO 18:37 → 1E 07-11 19:41 → 2S 07-12 04:45